=== PATIENT | male | born 1965 | race Caucasian/White ===

== ENCOUNTER 2016-12-19 14:32 | Outpatient (CLI) | payer OTHER | END 2016-12-19 14:33 | disposition home or self-care (01) | LOC: SC 14:32 | PROVIDERS: ATTEND Internal Medicine Pulmonary Disease | DX: G47.10 Hypersomnia, unspecified (principal); G47.61 Periodic limb movement disorder; R06.83 Snoring; G47.8 Other sleep disorders | CPT/HCPCS: 99203; 99212 ==

== ENCOUNTER 2017-02-05 19:21 | Outpatient (CLI) | payer OTHER | END 2017-02-05 19:22 | disposition home or self-care (01) | LOC: SC 19:21 | PROVIDERS: ATTEND Internal Medicine Pulmonary Disease | DX: G47.33 Obstructive sleep apnea (adult) (pediatric) (principal); G47.61 Periodic limb movement disorder | CPT/HCPCS: 95810 ==

== ENCOUNTER 2017-02-20 09:48 | Outpatient (CLI) | payer OTHER | END 2017-02-20 09:49 | disposition home or self-care (01) | LOC: SC 09:48 | PROVIDERS: ATTEND Internal Medicine Pulmonary Disease | DX: G47.33 Obstructive sleep apnea (adult) (pediatric) (principal); G47.61 Periodic limb movement disorder | CPT/HCPCS: 99212; 99213 ==

== ENCOUNTER 2017-03-26 21:47 | Emergency (ER) | payer MEDICAID, OTHER ==
[2017-03-26] MEDS ORDERED: METOCLOPRAMIDE 10 MG/2 ML VIAL IVP STA (22:01)
[2017-03-26] MEDS ORDERED: SODIUM CHLORIDE 0.9% 1,000 ML IV ONE (22:01)
[2017-03-26] MEDS ORDERED: DEXAMETHASONE 10 MG/ML VIAL PO STA (22:01)
[2017-03-26] MEDS ORDERED: diphenhydrAMINE INJ 50 MG/ML VIAL IVP STA (22:01)
[2017-03-26] MEDS ORDERED: KETOROLAC 60 MG/2 ML VIAL IVP STA (22:01)
--- NOTE | 2017-03-26 22:02 | ED Physician Documentation ---
PD HPI HEADACHE - Stated complaint Stated Complaint: CHILDERS - Chief complaint Chief Complaint: Heent - History obtained from History obtained from: Patient, Family - History of Present Illness Timing - onset: How many days ago (2) Timing - onset during: Rest Timing - details: Gradual onset, Still present Location: Back Quality: Aching Associated symptoms: No: Fever, Stiff neck, Nausea, Vomiting, Weakness, Numbness , Syncope Similar symptoms before: No diagnosis Recently seen: Not recently seen - Additional information Additional information: Patient is a 51 year old male who is presenting to the emergency department for a headache. Patient states that it started dull in the back of his head and radiated up. Patient states that it has been persist for the last two days. patient states that he has not taken anything for it. Patient denied any change in vision or any neurological deficits. Review of Systems Constitutional: denies: Fever, Chills Eyes: denies: Decreased vision Ears: denies: Ear pain, Drainage/discharge Nose: denies: Congestion Throat: denies: Sore throat Cardiac: denies: Chest pain / pressure Respiratory: denies: Dyspnea, Cough, Wheezing GI: denies: Nausea, Vomiting : reports: Reviewed and negative Skin: reports: Reviewed and negative Musculoskeletal: reports: Neck pain. denies: Back pain, Extremity pain Neurologic: reports: Headache. denies: Generalized weakness, Focal weakness, Head injury, LOC Immunocompromised: denies: Immunocompromised PD PAST MEDICAL HISTORY - Past Medical History Past Medical History: Yes Cardiovascular: Hypertension Respiratory: None Neuro: None Endocrine/Autoimmune: None GI: None : None HEENT: None Psych: None Musculoskeletal: Other Derm: None Other Past Medical History: RESTLESS LEG SYNDROME...CHRONIC KNEE PAIN.. - Past Surgical History Past Surgical History: Yes General: Appendectomy, Other - Allergies Allergies/Adverse Reactions: Allergies Allergy/AdvReac Type Severity Reaction Status Date / Time meperidine [From Demerol] AdvReac Anaphylaxis Verified 03/26/17 21:59 - Social History Does the pt smoke?: Yes Smoking Status: Current every day smoker Does the pt drink ETOH?: Yes Does the pt have substance abuse?: No - Immunizations Immunizations are current?: Yes - POLST Patient has POLST: No PD ED PE NORMAL - General General: Alert and oriented X 3, No acute distress - HEENT HEENT: Atraumatic, PERRL, Moist mucous membranes - Neck Neck: Supple, no meningeal sign - Cardiac Cardiac: No murmur - Respiratory Respiratory: No respiratory distress - Abdomen Abdomen: Soft, Non tender, Non distended - Derm Derm: Normal color, Warm and dry, No rash - Neuro Neuro: Alert and oriented X 3, 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, No motor deficit, No sensory deficit, Normal speech Eye Opening: Spontaneous Motor: Obeys Commands Verbal: Oriented GCS Score: 15 - Psych Psych: Normal mood PD ED PE EXPANDED - Neck Neck: Soft tissue TTP (mild tenderness to palpation of proximal paraspinal muscles) Results - Vitals Vitals: Vital Signs - 24 hr 03/26/17 21:57 Temperature 36.2 C L Heart Rate 80 Respiratory 17 Rate Blood Pressure 104/67 O2 Saturation 100 Oxygen O2 Source Room air PD MEDICAL DECISION MAKING - ED course Complexity details: reviewed old records, reviewed results, re-evaluated patient , considered differential, d/w patient, d/w family ED course: Patient was seen and examined at bedside. Patient was well appearing and in no acute distress. IV access was gained and patient was treated with iv fluids, toradol, reglan, bendadryl and decadron. Patient's headache improved significantly. While serious etiology of his headache was considered it was unlikely. Patient required no further work up and was stable for discharge with outpatient follow up. Departure - Departure Disposition: 01 Home, Self Care Clinical Impression: Tension headache Condition: Good Instructions: ED Headache Tension Follow-Up: Shayan Espinoza MD [Primary Care Provider] - Within 3 Days Comments: Your symptoms today are likely secondary to a tension headache. You should stop wearing any headwear. You should take motrin or tylenol as needed for pain. You should also try to quit smoking as it can exacerbate your symptoms. You should follow up with your doctor this week for further evaluation and care. You may return to the emergency department at any time for new, worsening or uncontrollable symptoms.
[2017-03-26 23:40] VITALS: BP 107/70
== END 2017-03-26 23:45 | disposition home or self-care (01) ==
LOC: ED 21:47
DX: G44.209 Tension-type headache, unspecified, not intractable (principal); I10 Essential (primary) hypertension; F17.200 Nicotine dependence, unspecified, uncomplicated
CPT/HCPCS: 96361; 96374; 96375; 99283

== ENCOUNTER 2017-03-31 20:23 | Outpatient (CLI) | payer OTHER, MEDICAID | END 2017-03-31 20:24 | disposition home or self-care (01) | LOC: SC 20:23 | PROVIDERS: ATTEND Internal Medicine Pulmonary Disease | DX: G47.33 Obstructive sleep apnea (adult) (pediatric) (principal); G47.61 Periodic limb movement disorder | CPT/HCPCS: 95811 ==

== ENCOUNTER 2017-05-15 13:37 | Outpatient (CLI) | payer OTHER, MEDICAID | END 2017-05-15 13:38 | disposition home or self-care (01) | LOC: SC 13:37 | PROVIDERS: ATTEND Nurse Practitioner Family | DX: G47.33 Obstructive sleep apnea (adult) (pediatric) (principal) | CPT/HCPCS: 99212; 99214 ==

== ENCOUNTER 2017-08-26 12:56 | Emergency (ER) | payer MEDICAID, OTHER ==
[2017-08-26 13:03] VITALS: BP 114/80
--- NOTE | 2017-08-26 13:40 | XRAY Report ---
Procedure Date: 08/26/2017 Accession Number: [id number] / [id number] Procedure: XR - Knee 4 View RT CPT Code: FULL RESULT: EXAM: RIGHT KNEE RADIOGRAPHY EXAM DATE: 08/26/2017 01:19 PM. CLINICAL HISTORY: Fall, NWB. COMPARISON: None. TECHNIQUE: 4 views. FINDINGS: Bones: Normal. No fractures or bone lesions. Joints: Joint space and alignment appears satisfactory. Soft Tissues: Normal. No soft tissue swelling. IMPRESSION: No fracture or subluxation of the right knee. RADIA
[2017-08-26] MEDS ORDERED: ACETAMINOPHEN 325 MG TABLET PO STA (13:42)
--- NOTE | 2017-08-26 13:50 | ED Physician Documentation ---
History of Present Illness - Stated complaint Stated Complaint: GLF/KNEE INJ - Chief complaint Chief Complaint: Ext Problem - Additonal information Additional information: hx from pt has arthritis and perhaps parkinsons wears knee braces sometime his knee will give out today he was cooking and his knee gave out and he fell onto the right knee no head neck injury no blood thinners Review of Systems Musculoskeletal: reports: Joint pain PD PAST MEDICAL HISTORY - Past Medical History Cardiovascular: Hypertension Respiratory: None Endocrine/Autoimmune: None GI: None : None HEENT: None Psych: None Musculoskeletal: Other Derm: None - Past Surgical History Past Surgical History: Yes General: Appendectomy, Other - Present Medications Home Medications: Ambulatory Orders Medication Instructions Recorded Confirmed Lisinopril 20 mg PO DAILY 08/26/17 08/26/17 Meloxicam 7.5 mg PO BID 08/26/17 08/26/17 Metoprolol Tartrate 100 mg PO DAILY 08/26/17 08/26/17 No Known Home Medications [No 08/26/17 08/26/17 Known Home Medications] rOPINIRole [Requip] 1 mg PO DAILY 08/26/17 08/26/17 - Allergies Allergies/Adverse Reactions: Allergies Allergy/AdvReac Type Severity Reaction Status Date / Time meperidine [From Demerol] AdvReac Anaphylaxis Verified 08/26/17 13:02 - Social History Does the pt smoke?: Yes Smoking Status: Current every day smoker Does the pt drink ETOH?: Yes Does the pt have substance abuse?: No - Immunizations Immunizations are current?: Yes - POLST Patient has POLST: No PD ED PE NORMAL - Vitals Vital signs reviewed: Yes - Extremities Extremities: Other (R knee small effusion, TTP ant ;ayteral jt line, no ACL MCL LCL laxity, no popliteal pain, extensor mech intact, MSV intact) Results - Vitals Vitals: Vital Signs - 24 hr 08/26/17 13:00 Temperature 36.5 C Heart Rate 82 Respiratory 15 Rate Blood Pressure 114/80 O2 Saturation 97 Oxygen O2 Source Room air - Rads (name of study) knee Radiology: See rad report (no fx or sublux) PD MEDICAL DECISION MAKING - Sepsis Event Vital Signs: Vital Signs - 24 hr 08/26/17 13:00 Temperature 36.5 C Heart Rate 82 Respiratory 15 Rate Blood Pressure 114/80 O2 Saturation 97 Oxygen O2 Source Room air Departure - Departure Disposition: 01 Home, Self Care Clinical Impression: Knee sprain Qualifiers: Encounter type: initial encounter Involved ligament of knee: unspecified ligament Laterality: right Qualified Code(s): S83.91XA - Sprain of unspecified site of right knee, initial encounter Condition: Good Instructions: ED Sprain Knee Follow-Up: DESTINY BURDEN MD [Primary Care Provider] - Comments: The xray does not show any fracture Recommend an JUSTIN wrap and ice for 20 minutes at a time and elevation for swelling Your meloxican and tylenol for the pain Use the crutches as needed to decrease the weight bearing stress Follow up PMD if not better in 1-2 weeks
== END 2017-08-26 14:05 | disposition home or self-care (01) ==
LOC: ED 12:56
DX: S83.91XA Sprain of unspecified site of right knee, initial encounter (principal); W18.30XA Fall on same level, unspecified, initial encounter; Y93.G3 Activity, cooking and baking; I10 Essential (primary) hypertension; F17.200 Nicotine dependence, unspecified, uncomplicated; M19.90 Unspecified osteoarthritis, unspecified site
CPT/HCPCS: 73564; 99283; A9270

== ENCOUNTER 2017-08-29 18:01 | Emergency (ER) | payer MEDICAID, OTHER ==
--- NOTE | 2017-08-29 20:25 | ED Physician Documentation ---
History of Present Illness - Stated complaint Stated Complaint: SWELLING IN LEGS - Chief complaint Chief Complaint: Ext Problem - History obtained from History obtained from: Patient, Family - History of Present Illness Timing: How many days ago (3) Pain level max: 5 Pain level now: 2 Improved by: nothing Worsened by: walking - Additonal information Additional information: Patient is a 51-year-old male with right lower extremity swelling status post a fall a few days ago. He was originally placed in an Biju wrap and is wearing mechanical stability braces as well. He has taken off the brace and Biju wrap and rewrap the Biju wrap at home. Review of Systems Constitutional: denies: Fever, Chills Respiratory: denies: Cough GI: denies: Vomiting Skin: denies: Rash Musculoskeletal: denies: Neck pain, Back pain PD PAST MEDICAL HISTORY - Past Medical History Cardiovascular: Hypertension Respiratory: None Endocrine/Autoimmune: None GI: None : None HEENT: None Psych: None Musculoskeletal: Other Derm: None - Past Surgical History Past Surgical History: Yes General: Appendectomy, Other - Present Medications Home Medications: Ambulatory Orders Medication Instructions Recorded Confirmed Lisinopril 20 mg PO DAILY 08/26/17 08/26/17 Meloxicam 7.5 mg PO BID 08/26/17 08/26/17 Metoprolol Tartrate 100 mg PO DAILY 08/26/17 08/26/17 No Known Home Medications [No 08/26/17 08/26/17 Known Home Medications] rOPINIRole [Requip] 1 mg PO DAILY 08/26/17 08/26/17 - Allergies Allergies/Adverse Reactions: Allergies Allergy/AdvReac Type Severity Reaction Status Date / Time meperidine [From Demerol] AdvReac Anaphylaxis Verified 08/29/17 18:10 - Social History Does the pt smoke?: Yes Smoking Status: Current every day smoker Does the pt drink ETOH?: Yes Does the pt have substance abuse?: No - Immunizations Immunizations are current?: Yes - POLST Patient has POLST: No PD ED PE NORMAL - Vitals Vital signs reviewed: Yes - General General: Alert and oriented X 3, No acute distress - HEENT HEENT: Moist mucous membranes - Neck Neck: Supple, no meningeal sign - Derm Derm: Warm and dry - Extremities Extremities: Other (Right lower extremity -Neurovascularly intact. No bony tenderness about the knee or lower extremity. No calf tenderness or cord. Does have 2+ edema on the right lower extremity underneath the Biju bandage, which was removed and appears to have been wrapped tightly around the knee. No erythema, no drainage. No joint line tenderness.) - Neuro Neuro: Alert and oriented X 3 Results - Vitals Vitals: Oxygen O2 Source Room air PD MEDICAL DECISION MAKING - ED course Complexity details: reviewed old records (Prior ED visit), considered differential, d/w patient, d/w family ED course: Patient is a 51-year-old male who presents to the emergency department with right lower extremity swelling, appears secondary to a tourniquet effect from the Biju bandage he had reapplied at home. We will have him stay out of the Biju bandage. The legs were elevated in the emergency department and swelling decreased significantly. No evidence of DVT or infection. No evidence of tibial plateau fracture. Patient counseled regarding signs and symptoms for which I believe and urgent re-evaluation would be necessary. Patient with good understanding of and agreement to plan and is comfortable going home at this time This document was made in part using voice recognition software. While efforts are made to proofread this document, sound alike and grammatical errors may occur. - Sepsis Event Vital Signs: Oxygen O2 Source Room air Departure - Departure Disposition: 01 Home, Self Care Clinical Impression: Peripheral edema Condition: Good Instructions: ED Leg Swelling Unilateral Follow-Up: DESTINY BURDEN MD [Primary Care Provider] - Within 1 week Comments: Keep the BIJU wrap off of your leg and elevate it at home, this will help with the swelling. Return if you worsen. Discharge Date/Time: 08/29/17 20:35
[2017-08-29 20:34] VITALS: BP 133/81
== END 2017-08-29 20:35 | disposition home or self-care (01) ==
LOC: ED 18:01
DX: R60.0 Localized edema (principal); I10 Essential (primary) hypertension; F17.200 Nicotine dependence, unspecified, uncomplicated
CPT/HCPCS: 99283

== ENCOUNTER 2018-06-21 08:00 | Outpatient (CLI) | payer MEDICAID | END 2018-06-21 08:01 | disposition home or self-care (01) | LOC: LAB.R 08:00 | PROVIDERS: ATTEND Physician Assistant Medical | DX: Z00.00 Encounter for general adult medical examination without abnormal findings (principal); Z12.11 Encounter for screening for malignant neoplasm of colon | CPT/HCPCS: 82274 ==

== ENCOUNTER 2018-06-24 08:00 | Outpatient (CLI) | payer MEDICAID ==
[2018-06-24 13:44] LABS: BASOPHILS # (AUTO) 0.1 10^3/uL (0.0-0.1); BASOPHILS % (AUTO) 1.3 %; EOSINOPHILS # (AUTO) 0.3 10^3/uL (0.0-0.7); EOSINOPHILS % (AUTO) 3.7 %; HGB - HEMOGLOBIN 14.8 g/dL (14.0-18.0); LYMPHOCYTES # (AUTO) 1.7 10^3/uL (1.5-3.5); LYMPHOCYTES % (AUTO) 21.3 %; MEAN CORPUSCULAR HEMOGLOBIN 36.2 pg (27.0-31.0); MEAN CORPUSCULAR HGB CONC 33.4 g/dL (32.0-36.0); MEAN CORPUSCULAR VOLUME 108.4 fL (80.0-94.0); MEAN PLATELET VOLUME 9.3 fL (7.4-11.4); MONOCYTES # (AUTO) 1.1 10^3/uL (0.0-1.0); MONOCYTES % (AUTO) 13.7 %; NEUTROPHILS # (AUTO) 4.7 10^3/uL (1.5-6.6); PLT - PLATELET COUNT 249 10^3/uL (130-450); RED BLOOD COUNT 4.09 10^6/uL (4.70-6.10); RED CELL DISTRIBUTION WIDTH 13.9 % (12.0-15.0); WHITE BLOOD COUNT 7.8 x10^3/uL (4.8-10.8)
[2018-06-24 14:01] LABS: BUN - BLOOD UREA NITROGEN 20 mg/dL (6-20); CALCIUM 9.1 mg/dL (8.5-10.3); CARBON DIOXIDE - CO2 26 mmol/L (21-32); CHLORIDE 105 mmol/L (101-111); CHOL/HDL RATIO 3.6 (<5.0); CHOLESTEROL 206 mg/dL; CREATININE 0.9 mg/dL (0.6-1.2); GFR - MDRD 88 (>89); GLUCOSE 102 mg/dL (70-100); HDL CHOLESTEROL 57 mg/dL; LDL CHOLESTEROL,CALCULATED 130 mg/dL; LDL/HDL RATIO 2.3 (<3.6); SODIUM 140 mmol/L (135-145); VLDL CHOLESTEROL 19 mg/dL
== END 2018-06-24 23:59 | disposition home or self-care (01) ==
LOC: LAB.N 08:00
PROVIDERS: ATTEND Physician Assistant Medical
DX: Z00.00 Encounter for general adult medical examination without abnormal findings (principal); K21.9 Gastro-esophageal reflux disease without esophagitis; I10 Essential (primary) hypertension
CPT/HCPCS: 36415; 80048; 80061; 83721; 84153; 84443; 85025

== ENCOUNTER 2018-07-02 08:00 | Outpatient (CLI) | payer MEDICAID ==
[2018-07-02 19:34] LABS: BASOPHILS # (AUTO) 0.1 10^3/uL (0.0-0.1); BASOPHILS % (AUTO) 0.5 %; EOSINOPHILS # (AUTO) 0.2 10^3/uL (0.0-0.7); EOSINOPHILS % (AUTO) 1.9 %; LYMPHOCYTES # (AUTO) 1.4 10^3/uL (1.5-3.5); LYMPHOCYTES % (AUTO) 12.4 %; MEAN CORPUSCULAR HEMOGLOBIN 36.2 pg (27.0-31.0); MEAN CORPUSCULAR HGB CONC 33.9 g/dL (32.0-36.0); MEAN CORPUSCULAR VOLUME 106.7 fL (80.0-94.0); MEAN PLATELET VOLUME 9.5 fL (7.4-11.4); MONOCYTES # (AUTO) 1.3 10^3/uL (0.0-1.0); MONOCYTES % (AUTO) 11.5 %; NEUTROPHILS # (AUTO) 8.6 10^3/uL (1.5-6.6); NEUTROPHILS % (AUTO) 73.7 %; PLT - PLATELET COUNT 238 10^3/uL (130-450); RED BLOOD COUNT 4.14 10^6/uL (4.70-6.10); RED CELL DISTRIBUTION WIDTH 13.6 % (12.0-15.0); WHITE BLOOD COUNT 11.6 x10^3/uL (4.8-10.8)
== END 2018-07-02 23:59 | disposition home or self-care (01) ==
LOC: LAB.N 08:00
PROVIDERS: ATTEND Physician Assistant Medical
DX: D53.9 Nutritional anemia, unspecified (principal)
CPT/HCPCS: 36415; 82607; 82746; 85025

== ENCOUNTER 2019-04-08 19:42 | Emergency (ER) | payer MEDICAID, MEDICARE ==
[2019-04-08 19:50] VITALS: BP 170/88
--- NOTE | 2019-04-08 20:00 | ED Physician Documentation ---
PD HPI UPPER EXT INJURY - Stated complaint Stated Complaint: LT SHOULDER INJURY - Chief complaint Chief Complaint: Ext Problem - History obtained from History obtained from: Patient (the patient is a 53 Y/O right handed dominant male who fell on his left shoulder 2 days ago and is c/o of left shoulder pain without weakness. he denies hitting his head or neck.) Review of Systems Constitutional: reports: Reviewed and negative Eyes: reports: Reviewed and negative Ears: reports: Reviewed and negative Nose: reports: Reviewed and negative Throat: reports: Reviewed and negative Cardiac: reports: Reviewed and negative Respiratory: reports: Reviewed and negative GI: reports: Reviewed and negative : reports: Reviewed and negative Skin: reports: Reviewed and negative Musculoskeletal: reports: Joint pain Neurologic: reports: Reviewed and negative Psychiatric: reports: Reviewed and negative Endocrine: reports: Reviewed and negative Immunocompromised: reports: Reviewed and negative PD PAST MEDICAL HISTORY - Past Medical History Cardiovascular: Hypertension Respiratory: None Endocrine/Autoimmune: None GI: None : None HEENT: None Psych: None Musculoskeletal: Other Derm: None - Past Surgical History Past Surgical History: Yes General: Appendectomy, Other - Present Medications Home Medications: Ambulatory Orders Medication Instructions Recorded Confirmed Meloxicam 7.5 mg PO BID 08/26/17 08/26/17 Metoprolol Tartrate 100 mg PO DAILY 08/26/17 08/26/17 No Known Home Medications 08/26/17 08/26/17 lisinopriL [Lisinopril] 20 mg PO DAILY 08/26/17 08/26/17 rOPINIRole [Requip] 1 mg PO DAILY 08/26/17 08/26/17 - Allergies Allergies/Adverse Reactions: Allergies Allergy/AdvReac Type Severity Reaction Status Date / Time meperidine [From Demerol] AdvReac Anaphylaxis Verified 04/08/19 19:46 - Social History Does the pt smoke?: Yes Smoking Status: Current every day smoker Does the pt drink ETOH?: Yes Does the pt have substance abuse?: No - Immunizations Immunizations are current?: Yes - POLST Patient has POLST: No PD ED PE NORMAL - Vitals Vital signs reviewed: Yes - General General: Alert and oriented X 3, No acute distress, Well developed/nourished - HEENT HEENT: Atraumatic, PERRL, EOMI, Ears normal, Moist mucous membranes, Pharynx benign - Neck Neck: Supple, no meningeal sign, No bony TTP - Cardiac Cardiac: RRR, No murmur, Strong equal pulses - Respiratory Respiratory: No respiratory distress, Clear bilaterally - Abdomen Abdomen: Normal bowel sounds, Soft, Non tender, Non distended - Back Back: No CVA TTP, No spinal TTP - Derm Derm: Normal color, Warm and dry, No rash - Extremities Extremities: No deformity, No tenderness to palpate, Other (decreased ROM of the left shoulder, radian/median/ulnar motor and sensory exam are intact, sensation intact over left lateral deltoid, is able to flex/extend, internal and external rotate, abduct and adduct but there is decreased ROM diffusely. SILT, compartment soft, NV intact.) - Neuro Neuro: Alert and oriented X 3 - Psych Psych: Normal mood, Normal affect Results - Vitals Vitals: Vital Signs - 24 hr 04/08/19 19:46 Temperature 36.8 C Heart Rate 128 H Respiratory 16 Rate Blood Pressure 170/88 H O2 Saturation 97 Oxygen O2 Source Room air Departure - Departure Disposition: 01 Home, Self Care Clinical Impression: Injury of left shoulder Qualifiers: Encounter type: initial encounter Qualified Code(s): S49.92XA - Unspecified in jury of left shoulder and upper arm, initial encounter Condition: Good Instructions: ED Strain Muscle Ext Follow-Up: DESTINY BURDEN MD [Primary Care Provider] - Within 1 week
--- NOTE | 2019-04-08 20:30 | XRAY Report ---
Reason: pain Procedure Date: 04/08/2019 Accession Number: [id number] / [id number] Procedure: XR - Shoulder 3 View LT CPT Code: Final Report FULL RESULT: EXAM: LEFT SHOULDER RADIOGRAPHY EXAM DATE: 04/08/2019 08:20 PM. CLINICAL HISTORY: Pain. COMPARISON: None. TECHNIQUE: 3 views. FINDINGS: Bones: Normal. No fracture or bone lesion. Joints: The glenohumeral and acromioclavicular joints are normal. Soft tissues: The visualized hemithorax is unremarkable. No soft tissue swelling. IMPRESSION: Normal shoulder radiography. RADIA
== END 2019-04-08 20:53 | disposition home or self-care (01) ==
LOC: ED 19:42
DX: S49.92XA Unspecified injury of left shoulder and upper arm, initial encounter (principal); W01.198A Fall on same level from slipping, tripping and stumbling with subsequent striking against other object, initial encounter; Y93.01 Activity, walking, marching and hiking; I10 Essential (primary) hypertension; F17.200 Nicotine dependence, unspecified, uncomplicated
CPT/HCPCS: 99282; 99283

== ENCOUNTER 2019-04-10 12:40 | Outpatient (CLI) | payer MEDICARE ==
--- NOTE | 2019-04-10 22:01 | XRAY Report ---
Reason: pain over L upper ribs Procedure Date: 04/10/2019 Accession Number: [id number] / [id number] Procedure: XRN - Chest 2 View X-Ray CPT Code: 29903 Final Report FULL RESULT: EXAM: CHEST RADIOGRAPHY. EXAM DATE: 04/10/2019 01:05 PM. CLINICAL HISTORY: Pain over left upper ribs. COMPARISON: XR CHEST PA AND LAT 09/20/2010 7:22 PM. TECHNIQUE: 2 views. FINDINGS: Lungs/Pleura: No focal opacities evident. No pleural effusion. No pneumothorax. Normal volumes. Mediastinum: Heart and mediastinal contours are unremarkable. Other: None. IMPRESSION: Normal 2-view chest radiography. RADIA
== END 2019-04-10 12:41 | disposition home or self-care (01) ==
LOC: DI.N 12:40
PROVIDERS: ATTEND Physician Assistant Medical
DX: R07.81 Pleurodynia (principal)
CPT/HCPCS: 71046

== ENCOUNTER 2020-04-27 08:00 | Outpatient (CLI) | payer MEDICARE ==
--- NOTE | 2020-04-27 14:25 | XRAY Report ---
PROCEDURE: Chest 2 View X-Ray INDICATIONS: DYSPNEA ON EXERTION TECHNIQUE: 2 view(s) of the chest. COMPARISON: 04/10/2019 chest x-ray. FINDINGS: Surgical changes and devices: None. Lungs and pleura: No pleural effusions or pneumothorax. Lungs are clear. Mediastinum: Mediastinal contours are normal. Heart size is normal. Bones and chest wall: No suspicious bony abnormalities. Soft tissues appear unremarkable. IMPRESSION: No acute process. Reviewed by: Harlan Ricardo MD on 04/27/2020 2:24 PM PST Approved by: Harlan Ricardo MD on 04/27/2020 2:24 PM PST Station ID: [id number]
[2020-04-27 18:14] LABS: HGB - HEMOGLOBIN 14.6 g/dL (14.0-18.0); MEAN CORPUSCULAR HGB CONC 33.2 g/dL (32.0-36.0); MEAN CORPUSCULAR VOLUME 111.4 fL (80.0-94.0); MEAN PLATELET VOLUME 11.4 fL (7.4-11.4); RED BLOOD COUNT 3.95 10^6/uL (4.70-6.10); RED CELL DISTRIBUTION WIDTH 14.3 % (12.0-15.0); WHITE BLOOD COUNT 7.5 x10^3/uL (4.8-10.8)
== END 2020-04-27 23:59 | disposition home or self-care (01) ==
LOC: DI.N 08:00
PROVIDERS: ATTEND Family Medicine
DX: R06.09 Other forms of dyspnea (principal)
CPT/HCPCS: 36415; 80048; 83880; 85027